=== PATIENT | female | born 2005 | race Caucasian/White ===

== ENCOUNTER 2025-01-31 12:15 | Emergency (ER) | payer OTHER, SELFPAY ==
[2025-01-31 12:22] VITALS: BP 117/78
[2025-01-31 12:53] VITALS: BMI 27.9
[2025-01-31 12:57] VITALS: BP 109/78
--- NOTE | 2025-01-31 15:50 | ED.GENMED ---
History of Present Illness
General
Chief Complaint: Cold/Flu/URI Symptoms
Source: patient and spouse
Exam Limitations: none
Time Seen by Provider: 01/31/25 15:10
Nursing documentation reviewed up to this point in time: agreed with
History of Present Illness
History of Present Illness:
19-year-old female presenting to the emergency department with concerns of persisting cough over the past few days some chest discomfort secondary to the cough. Sore throat nasal congestion. Had similar issues 6 weeks ago diagnosed with bronchitis
and pleurisy was given steroids antibiotic and cough medication. Had some improvement after those treatments but seem to have worsening over the past few days. Has been using her inhaler at home as well. Denies specific high fever. Did take
Motrin prior to arrival.
Review of Systems
Review of Systems
Allergies reviewed?: Yes
All Other Systems: ROS reviewed and negative except as documented in HPI and ROS
Phy Exam
Physical Exam
Physical Exam:
GENERAL: Alert , in no apparent distress
EYE: pupils equal and reactive
NECK: Supple, no significant adenopathy.
ENT: o/p clr, mmm.
CARDIAC: Regular rate and rhythm .
LUNGS: Clear breath sounds bilaterally, no acute respiratory distress, no wheezes/rales/rhonchi
ABDOMEN: Soft, without focal tenderness, no r/g, no cvat
NEUROLOGICAL: Alert and oriented, no focal neuro deficits
SKIN: Warm and dry, skin intact.
MUSCULOSKELETAL: No edema, well perfused.
PSYCH: Normal and appropriate interaction.
Course
Orders/Labs/Results
Orders:
Orders
01/31/25 15:42
Chest [CR Chest - 2 Views ] Urgent
Comment:
Reason For Exam: cough SOB
01/31/25 15:50
COVID-19 Antigen Urgent
Source: Nasal Swab
01/31/25 18:08
Dexamethasone [Decadron] 10 mg PO NOW STA
Vital Signs
Initial and Last Documented VS:
Initial Vital Signs
Temp Pulse Resp BP Pulse Ox
99.2 F 112 18 117/78 97
01/31/25 12:22 01/31/25 12:22 01/31/25 12:22 01/31/25 12:22 01/31/25 12:22
Last Documented Vital Signs
Temp Pulse Resp BP Pulse Ox
99.2 F 96 18 119/77 98
01/31/25 12:22 01/31/25 18:27 01/31/25 18:27 01/31/25 18:27 01/31/25 18:27
MDM/Problems Addressed
MDM/Problems Addressed:
19-year-old female presenting to the emergency department today with concerns of persisting cough over the past few days. On arrival mildly tachycardic but improved without specific treatment. Normal pulse ox vital signs normal otherwise. Here
chest x-ray without acute abnormalities. Patient no distress patient with likely viral syndrome stable for outpatient management return precautions given.
*Pulse Oximetry
SaO2: 98
Oxygen Mode of Delivery: Room air
Patient hypoxic: no (98)
*Critical Care Note
Total Time (30-74mins, 75-104mins- exclusive of procedures): Not Applicable
ED Attending Note
-
Portions of this chart may have been created with voice recognition software.� Occasional wrong word or��sound alike� substitutions may have occurred due to the inherent limitations of voice recognition software.
Discharge Plan
Departure
Patient Disposition: Home (Routine Discharge)
Date of Disposition: 01/31/25
Time of Disposition: 18:17
Patient with high blood pressure during this ER visit?: No
Condition: Good
Covid-19: Not Applicable
Discharge Problem:
Acute viral syndrome
Instructions: Viral Upper Respiratory Infection, Adult (DC)
Prescriptions:
New
prednisone 20 mg tablet
40 mg PO DAILY 3 Days Qty: 6 0RF
albuterol sulfate 90 mcg/actuation aerosol powdr breath activated
2 inh inhalation Q6H PRN (Reason: shortness of breath) Qty: 1 0RF
Referrals:
Dio Banegas MD [Active, Pulmonary Medicine]
Franny Claire CRNP [Family Provider, General]
Activity Restrictions/Additional Instructions:
You came to the emergency department today with concerns of upper respiratory symptoms. Here your chest x-ray was normal. You are negative for COVID. Please take the prescribed medications and follow-up closely as an outpatient. Return for any
worsening, new or concerning symptoms.
Interventions
Interventions:
*Risk Screen - Suicide Last Done: 01/31/25 12:22
*General Assessment Last Done: 01/31/25 12:54
*Neglect/Abuse Screening Last Done: 01/31/25 12:22
*ED- Fall Risk Assessment Last Done: 01/31/25 12:54
*ED COVID-19 Vaccine History Last Done: 01/31/25 12:54
*Nursing Disposition Last Done: 01/31/25 18:46
ED- Pulmonary Assessment Last Done: 01/31/25 12:59
Discharge Date and Time
Discharge Date/Time: 01/31/25 18:47
Print Language: [id number]
[2025-01-31 16:05] VITALS: BP 114/65
[2025-01-31 16:37] LABS: COVID-19 Antigen Negative (Negative)
[2025-01-31] MEDS: DECADRON 10 MG PO (18:23)
[2025-01-31 18:27] VITALS: BP 119/77
== END 2025-01-31 18:47 | disposition home or self-care (01) ==
LOC: EMR 12:15
PROVIDERS: Physician Assistant; EMERGENCY PHYSICIAN Emergency Medicine; FAMILY PHYSICIAN Nurse Practitioner Adult Health
DX: B34.9 Viral infection, unspecified (principal); Z11.52 Encounter for screening for COVID-19
CPT/HCPCS: 99283; 71046; 87811